=== PATIENT | male | born 1990 | race Caucasian/White ===

== ENCOUNTER 2020-08-03 02:01 | Emergency (ER) | payer OTHER ==
[~2020-08-03] VITALS: Ht 185.4 cm; Wt 99.8 kg
[2020-08-03 02:03] VITALS: BP 150/91
--- NOTE | 2020-08-03 02:07 | NUR ---
billy LIRA custody to [employer] [facility]
[2020-08-03 02:11] VITALS: BP 150/91
--- NOTE | 2020-08-03 02:12 | NUR ---
Dr. Adams with pt for MSE.
--- NOTE | 2020-08-03 02:29 | NUR ---
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
== END 2020-08-03 02:31 ==
LOC: MED 02:01
DX: M25.561 Pain in right knee (principal); R03.0 Elevated blood-pressure reading, without diagnosis of hypertension; Z04.1 Encounter for examination and observation following transport accident; Z02.89 Encounter for other administrative examinations; V89.2XXA Person injured in unspecified motor-vehicle accident, traffic, initial encounter; Y93.9 Activity, unspecified; Y92.89 Other specified places as the place of occurrence of the external cause; Y99.8 Other external cause status
CPT/HCPCS: 99283